=== PATIENT | female | born 1960 | race Caucasian/White ===

== ENCOUNTER → 2021-11-14 | Day surgery (SDC) | payer OTHER ==
[~2021-11-14] VITALS: Ht 167.9 cm; Wt 59.3 kg
[~2021-11-14] MED LIST: ACETAMINOPHEN325 MG PO; AMOXICILLIN500 MG PO; NORCO 5-325 TA1 EACH PO
[2021-11-14 13:15] LABS: HCT 37.9 % (37.0-47.0); HGB 12.5 g/dl (12.5-16.0); MPV 8.8 fL (6.0-9.5); RBC 3.79 M/uL (4.20-5.40); RDW 12.8 % (11.5-14.0)
[2021-11-14 13:48] LABS: BILIRUBIN - TOTAL 0.7 mg/dL (0.2-1.0); BUN/CREAT RATIO (CALC) 10.9 RATIO; CREATININE 0.64 mg/dL (0.51-0.95); GLOBULIN (CALCULATION) 2.8 g/dL; POTASSIUM 3.9 mmol/L (3.5-5.1); TOTAL PROTEIN 6.8 g/dL (6.4-8.2)
== END | disposition home or self-care (01) ==
LOC: FAS 11:50
PROVIDERS: Surgery
DX: K64.2 Third degree hemorrhoids (principal)
CPT/HCPCS: 36415; 80053; J1100; J1885; J2250; J2405; J2704; J3010; J7120